=== PATIENT | male | born 1975 | race Hispanic/Latino ===

== ENCOUNTER 2024-05-25 15:08 | Emergency (ER) | payer SELFPAY ==
[~2024-05-25] VITALS: Ht 170.2 cm; Wt 144.4 kg
[2024-05-25] MEDS ORDERED: LISINOPRIL20 MG PO (15:33)
[2024-05-25] MEDS ORDERED: SUBOXONE 8 MG-1 EAC1 SL (15:34)
[2024-05-25] MEDS ORDERED: SUBOXONE 12 MG1 EACH SL (17:00)
[2024-05-25 17:05] VITALS: BP 151/98
== END 2024-05-25 17:06 | disposition home or self-care (01) ==
LOC: ED 15:08
DX: Z76.0 Encounter for issue of repeat prescription (principal); Z79.899 Other long term (current) drug therapy
CPT/HCPCS: 99281